=== PATIENT | male | born 1935 | race Caucasian/White ===

== ENCOUNTER 2023-12-10 11:59 | Emergency (ER) | payer OTHER, SELFPAY ==
[2023-12-10 12:01] VITALS: BP 169/100
[2023-12-10 13:09] LABS: % Basophils 0.3 % (0-2); % Eosinophils 1.8 % (0-6); % Immature Granulocytes 0.3 % (0-0.5); % Lymphocytes 11.6 % (20.5-51.1); % Monocytes 7.7 % (1.7-9.3); % Neutrophils 78.3 % (42.2-75.2); Absolute Eosinophils 0.2 10^3/uL (0-0.7); Absolute Monocytes 0.7 10^3/uL (0.1-0.6); Hemoglobin 10.6 g/dL (13.0-18.0); Mean Corp Hgb Conc. 33.1 g/dL (33.0-37.0); Mean Corpuscular Hgb 28.6 pg (27.0-31.0); Mean Corpuscular Volume 86.5 fL (80.0-94.0); Mean Platelet Volume 9.4 fL (7.4-10.4); Nucleated Red Blood Cells % 0 % (-); Platelet Count 309 10^3/uL (130-400); Red Cell Dist. Width 14.8 % (11.5-14.5)
[2023-12-10 13:13] VITALS: BMI 32.9
[2023-12-10 13:23] LABS: Blood Urea Nitrogen 40 mg/dl (9-20); Calcium 9.2 mg/dl (8.4-10.2); Carbon Dioxide 29 mmol/L (22-30); Chloride 104 mmol/L (98-107); Estimated Creatinine Clearance 22 ml/min; Glucose 158 mg/dl (70-99); Potassium 4.6 mmol/L (3.5-5.1); Sodium 140 mmol/L (135-145); eGFR 22.12
--- NOTE | 2023-12-10 13:48 | ED.GENMED ---
History of Present Illness
General
Chief Complaint: Skin Problem
Source: patient
Time Seen by Provider: 12/10/23 12:10
History of Present Illness
History of Present Illness:
88-year-old male with past medical history of CHF, hypertension, hyperlipidemia, CKD, diabetes (managed with diet only) presenting to the emergency department for evaluation of right lower extremity erythema and wounds that have been present for
about 1 month. Patient went to primary care provider today and was referred to the emergency department for further care. He notes that the only medication he was told to place over the affected area was triple antibiotic ointment/Neosporin.
Patient reports no relief with this. He denies any pain, fevers, chills, rigors, respiratory concerns or any other concerns at this time. He denies any trauma to the affected right lower extremity.
Past History
Past History
ED Past Medical History: CHF, HTN, Hypercholesterolemia, NIDDM and Renal failure
ED Past Surgical History: Cardiac, Orthopedic and Tonsilectomy
Social History
Tobacco: Non-smoker
Alcohol: None
Drug: None
Personal:
Living: with family
Review of Systems
Review of Systems
All Other Systems: ROS reviewed and negative except as documented in HPI and ROS
Phy Exam
Physical Exam
Physical Exam:
GENERAL: Alert , in no apparent distress
EYE: conjunctiva clear
NECK: Supple, no significant adenopathy.
ENT: o/p clr, mmm.
CARDIAC: Regular rate and rhythm
LUNGS: Clear breath sounds bilaterally, no acute respiratory distress, no wheezes/rales/rhonchi
NEUROLOGICAL: Alert and oriented
SKIN: Warm and dry, 3 venous stasis wounds to the anterior right lower leg. This is surrounded by erythema that extends towards the proximal tib-fib region. There is significant bilateral pitting edema worse to the dorsum of the foot bilaterally.
No increased pain with palpation. Wounds are none weeping. No abscess formation
MUSCULOSKELETAL: Palpable pedal and tibial pulse bilaterally
PSYCH: Normal and appropriate interaction.
Scores
Heart Failure Risk
Heart Failure Risk Score: Not Applicable
Heart Score for Chest Pain Patients
STEMI patient?: Not applicable
Withdrawal Assessment of Alcohol
Withdrawal Assessment Completed?: Not applicable
Course
Orders/Labs/Results
Orders:
Orders
12/10/23 12:44
CR Leg Tibia/fibula Right 2 Vw Urgent
Comment:
Reason For Exam: edema, erythema, wounds
12/10/23 12:45
US Periph Venous LOWER Ext RT Urgent
Comment:
Reason For Exam: edema, erythema
12/10/23 13:01
Basic Metabolic Panel Urgent
Complete Blood Count/With Diff Urgent
Abnormal Lab Results
12/10/23
13:01
RBC 3.70 L 10^6/uL
(4.70-6.10)
Hgb 10.6 L g/dL
(13.0-18.0)
Hct 32.0 L %
(39.0-52.0)
RDW 14.8 H %
(11.5-14.5)
Absolute Neuts (auto) 7.0 H 10^3/uL
(1.4-6.5)
Absolute Lymphs (auto) 1.0 L 10^3/uL
(1.2-3.4)
Absolute Monos (auto) 0.7 H 10^3/uL
(0.1-0.6)
Neutrophils % 78.3 H %
(42.2-75.2)
Lymphocytes % 11.6 L %
(20.5-51.1)
BUN 40 H mg/dl
(9-20)
Creatinine 2.7 H mg/dL
(0.7-1.3)
Glucose 158 H mg/dl
(70-99)
12/10/23 13:01
07/10/24 13:01
Vital Signs
Initial and Last Documented VS:
Initial Vital Signs
Temp Pulse Resp BP Pulse Ox
98.4 F 61 18 169/100 96
12/10/23 12:01 12/10/23 12:01 12/10/23 12:01 12/10/23 12:01 12/10/23 12:01
Last Documented Vital Signs
Temp Pulse Resp BP Pulse Ox
98.4 F 61 18 169/100 96
12/10/23 12:01 12/10/23 12:01 12/10/23 12:01 12/10/23 12:01 12/10/23 12:01
MDM/Problems Addressed
Differential Diagnosis Includes:
Cellulitis, abscess, venous stasis ulcers, DVT, less concern for necrotizing fasciitis or other emergent infectious etiology given duration of symptoms
MDM/Problems Addressed:
88-year-old male presenting to the ER from primary care's office for evaluation of right lower extremity wounds which appear to be in/cellulitic. Given his past medical history it is certainly possible that patient has chronic venous stasis wounds
that are poorly healing due to his chronic medical conditions. Will check labs, x-ray imaging and ultrasound to rule out any other pathologies. 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 I told patient that I would prefer to admit him for IV antibiotics but given his social needs will start on doxycycline and contact patient's primary care provider to ensure adequate follow-up.
Chronic conditions affecting care: DM, Kidney disease and Other (Peripheral vascular disease)
*Radiology
Radiology exam reviewed: radiology read reviewed
*Pulse Oximetry
Patient hypoxic: no
*Critical Care Note
Total Time (30-74mins, 75-104mins- exclusive of procedures): Not Applicable
Patient Management
Discussion with other providers: PCP
Escalation/DeEscalation of care consider admission/obs:
I informed patient primary care provider of lab findings. They were in agreement with this plan. They will follow-up with the patient in their office on Friday for wound check. I also provided the patient with information for [facility]
care center. I notified the patient that if symptoms do not seem to be improved over the weekend or next week that I will be working those days and he is always welcome to come back to the ER to see me and at that point we could then admit patient
to the hospital for further management.
ED Attending Note
-
Portions of this chart may have been created with voice recognition software.� Occasional wrong word or��sound alike� substitutions may have occurred due to the inherent limitations of voice recognition software.
Discharge Plan
Departure
Patient Disposition: Home (Routine Discharge)
Date of Disposition: 12/10/23
Time of Disposition: 13:48
Patient with high blood pressure during this ER visit?: Yes
Discharge Problem:
Cellulitis of right lower extremity, Peripheral vascular disease, Wound of right lower extremity
Instructions: Cellulitis (Skin Infection), Adult (DC), [facility] for Wound Healing-Wounds
Prescriptions:
New
doxycycline hyclate 100 mg tablet
100 mg PO BID Qty: 20 0RF
No Action
furosemide 40 MG tablet
40 mg PO DAILY
atorvastatin 20 MG tablet
20 mg PO QPM
enalapril maleate 20 MG tablet
20 mg PO DAILY
clopidogrel 75 MG tablet
75 mg PO DAILY
isosorbide mononitrate 60 MG tablet extended release 24 hr
60 mg PO DAILY
tamsulosin 0.4 MG capsule
0.4 mg PO DAILY
glimepiride 4 MG tablet
4 mg PO BID
metoprolol succinate 25 MG tablet extended release 24 hr
25 mg PO DAILY
dexlansoprazole [Dexilant] 30 MG capsule,biphase delayed releas
30 mg PO DAILY
ferrous sulfate [Slow Fe] 142 MG tablet extended release
142 mg PO DAILY
saxagliptin [Onglyza] 2.5 MG tablet
5 mg PO DAILY
[id number] [Centrum Silver Men] 1 EACH tablet
1 ea PO DAILY
Zeaxanthin And Lutein
1 tab PO DAILY
Referrals:
[facility]
Mindy Bruner PA-C [Family Provider] - (You will have an appointment Friday. Please call the office to confirm appointment time)
Interventions
Interventions:
*Risk Screen - Suicide Last Done: 12/10/23 12:01
*General Assessment Last Done: 12/10/23 12:01
*Neglect/Abuse Screening Last Done: 12/10/23 12:01
Discharge Date and Time
Print Language: RUSSIAN
== END 2023-12-10 15:12 | disposition home or self-care (01) ==
LOC: EMR 11:59
PROVIDERS: Physician Assistant Medical; EMERGENCY PHYSICIAN Emergency Medicine; FAMILY PHYSICIAN Physician Assistant Medical
DX: L03.115 Cellulitis of right lower limb (principal); I73.9 Peripheral vascular disease, unspecified; S81.801A Unspecified open wound, right lower leg, initial encounter; X58.XXXA Exposure to other specified factors, initial encounter; I13.0 Hypertensive heart and chronic kidney disease with heart failure and stage 1 through stage 4 chronic kidney disease, or unspecified chronic kidney disease; N18.9 Chronic kidney disease, unspecified; E11.22 Type 2 diabetes mellitus with diabetic chronic kidney disease; E11.51 Type 2 diabetes mellitus with diabetic peripheral angiopathy without gangrene; I50.9 Heart failure, unspecified
CPT/HCPCS: 99285; 73590; 80048; 85025; 93971